=== PATIENT | male | born 1990 | race American Indian/Alaskan Native ===

== ENCOUNTER 2018-09-12 12:54 | Emergency (ER) | payer MEDICAID ==
[2018-09-12 13:03] VITALS: BMI 22.1
[2018-09-12 13:07] VITALS: TEMP 98.2
[2018-09-12] MEDS ORDERED: Oxycodone/Acetaminophen 5/325 mg Tab PO STA (13:35)
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
[2018-09-12 14:04] LABS: BASO # 0.03 K/mm3 (0.0-2.0); BASO % 0.3 % (0.0-3.0); EOS # 0.1 (0.0-0.7); EOS % 0.6 % (1.5-5.0); GRAN # 9.1 (1.4-6.5); GRAN % 79.3 % (50.0-68.0); HEMOGLOBIN 14.3 g/dL (14.0-18.0); LYMPH # 1.9 (1.2-3.4); LYMPH % 16.3 % (22.0-35.0); MEAN CELL VOLUME 87.1 fl (80.0-105.0); MEAN CORPUSCULAR HEMOGLOBIN 29.3 pg (25.0-35.0); MEAN CORPUSCULAR HGB CONC 33.6 g/dl (31.0-37.0); MEAN PLATELET VOLUME 10.5 fl (7.0-11.0); MONO # 0.4 (0.1-0.6); MONO % 3.5 % (1.0-6.0); RBC 4.88 10^6/uL (3.5-6.1); RED CELL DISTRIBUTION WIDTH 12.9 % (11.5-14.5); WHITE BLOOD COUNT 11.5 10^3/uL (4.5-11.0)
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
[2018-09-12 15:01] LABS: ALB/GLOB RATIO 1.2 (1.1-1.8); ALBUMIN 4.3 g/dL (3.0-4.8); ALT/SGPT 39 U/L (7-56); AST/SGOT 88 U/L (17-59); BLOOD UREA NITROGEN 13 mg/dL (7-21); CALCIUM 12.4 mg/dL (8.4-10.5); GFR NON-AFRICAN AMERICAN > 60
[2018-09-12] MEDS ORDERED: Sodium Chloride 0.9% 1,000 ML IV STA ×3 (15:42→19:11)
--- NOTE | 2018-09-12 16:24 | RAD ---
Date of service: 09/12/2018 HISTORY: medical clearance COMPARISON: No prior. FINDINGS: LUNGS: No active pulmonary disease. PLEURA: No significant pleural effusion identified, no pneumothorax apparent. CARDIOVASCULAR: No aortic atherosclerotic calcification present. Normal cardiac size. No pulmonary vascular congestion. OSSEOUS STRUCTURES: No significant abnormalities. VISUALIZED UPPER ABDOMEN: Normal. OTHER FINDINGS: None. IMPRESSION: No active disease.
[2018-09-12 18:08] LABS: ALB/GLOB RATIO 1.2 (1.1-1.8); ALBUMIN 3.7 g/dL (3.0-4.8); ALT/SGPT 38 U/L (7-56); AST/SGOT 28 U/L (17-59); BLOOD UREA NITROGEN 13 mg/dL (7-21); CALCIUM 11.4 mg/dL (8.4-10.5); GFR NON-AFRICAN AMERICAN > 60
[2018-09-12] MEDS ORDERED: Sodium Chloride 0.9% 1,000 ML IV SCH (18:15)
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
[2018-09-12 23:51] VITALS: BP 121/78; PULSE 67; RESP 18; O2SAT 100
--- NOTE | 2018-09-13 09:32 | CARD ---
APPROVED REPORT Date of service: 09/12/2018 EKG Measurement Heart [id number] <Conclusion> Marked sinus bradycardia ST elevation with peaked T waves V3,4 c/w early repolarization and/or metabolic abnormality. No prior ECG for comparison.
--- NOTE | 2018-09-13 18:34 | US ---
PROCEDURE: Right lower extremity venous US HISTORY: Leg pain and swelling. Evaluate for DVT. PHYSICIAN(S): Chano Armstrong M.D. TECHNIQUE: Duplex sonography and color-flow Doppler with graded compression were used to evaluate the deep venous system of the right lower extremity. FINDINGS: The visualized deep venous system of the right lower extremity is sonographically normal and compressible. Normal waveforms and augmentation are seen. There is no sonographic evidence for deep venous thrombosis in the visualized segments of the right lower extremity. IMPRESSION: 1. No sonographic evidence for deep venous thrombosis in the visualized segments of the right lower extremity.
== END 2018-09-12 19:30 | disposition left against medical advice (07) ==
LOC: ED 12:54 → ERH 18:17 → UNDOADMOB 18:17 → ERH 18:49 → ED 19:30
DX: S81.801D Unspecified open wound, right lower leg, subsequent encounter (principal); X95.9XXD Assault by unspecified firearm discharge, subsequent encounter; E83.52 Hypercalcemia
CPT/HCPCS: 71045; 73590; 80053; 82550; 84484; 85025; 93005; 93971; 96361; 96374; 99284; J1885; J7030